=== PATIENT | female | born 1985 | race Caucasian/White ===

== ENCOUNTER 2016-05-06 14:56 | Emergency (ER) | payer OTHER ==
[~2016-05-06] VITALS: Ht 162.6 cm; Wt 104.3 kg
[~2016-05-06 14:56] MED LIST: IBUPROFEN800 MG PO; PERCOCET 325 MG1 TA2 PO
--- NOTE | 2016-05-06 17:11 | ED GI/GU/ABDOMINAL COMPLAINT ---
History of Present Illness General Chief Complaint: General Adult Stated Complaint: pt is having pain on the rigth side Source: patient Exam Limitations: no limitations Vital Signs & Intake/Output Vital Signs & Intake/Output Vital Signs Date Time Temp Pulse Resp B/P Pulse O2 O2 Flow FiO2 Ox Delivery Rate 05/06 1922 97.4 88 20 113/84 97 Room Air 05/06 1459 98.9 100 20 107/79 98 Room Air Allergies Coded Allergies: NO KNOWN ALLERGIES (05/06/16) Reconcile Medications Ciprofloxacin HCl (Cipro) 500 MG TABLET 1 TAB PO BID UTI Ibuprofen 800 MG TABLET 800 MG PO Q6P PRN PAIN SCALE 4-6 Ketorolac Tromethamine 10 MG TABLET 1 TAB PO TID PRN PAIN OXYCODONE HCL/ACETAMINOPHEN (Percocet 5-325 MG Tablet) 325 MG/5 MG TAB 1 TAB PO Q4P PRN PAIN SCALE 7-8 Triage Note: TRIAGE: PT TO ER C/C PAIN TO RT SIDE ABDOMEN AND R SIDE BACK X 8 MONTHS, INTERMITTENT BUT NOW CONSTANT IN LAST MONTH. HAS SEEN MD FOR SAME AND WAS TOLD MUSCULAR, HAD LIVER/KIDNEY TESTS THAT WERE OK. HAS BEEN TAKING IBUPROFEN WITH RELIEF, STATES "IT DID GO AWAY FOR LIKE A WEEK BUT THEN IT CAME BACK". DENIES N/V/D. LBM THIS MORNING, BUT WAS NOT NORMAL. STATES FEELS A LITTLE BIT CONSTIPATED AND HASN'T HAD NORMAL BM'S IN LIKE 2 WEEKS. STATES HAD UTI 2 WEEKS AGO, DENIES ANY CURRENT URINARY S/S. Triage Nurses Notes Reviewed? yes ? N Is pt currently ? No Onset: Abrupt Duration: intermittent Timing: remote history Quality/Severity: sharpness, severe, stabbing, throbbing Severity Numbers: 8 Location: right flank, right upper quadrant Radiation: no radiation Activities at Onset: none HPI: Patient is a 30-year-old female with a past medical history of kidney stones who presents to emergency room with an 8 month history of complaints of intermittent right upper quadrant and right flank pain in which she states that symptoms are paroxysmal nature and have no pattern to onset. Denies any change in symptoms after eating. States that approximately 2 months ago she was evaluated by urgent care facility received blood work with unremarkable findings Patient has been taking ibuprofen with relief of symptoms. Last ibuprofen was yesterday. Denies any significant alcohol use. States she had urinary tract infection symptoms last week however take over-the- counter medications and completely resolved after 1 day. Patient denies any fever, chills, chest pain dysuria hematuria vaginal bleeding vaginal discharge. Last bowel movement was within the last 24 hours no blood no melena noted. Denies any last menstrual period was approximately 25 days (ANIVAL VAZQUEZ) Past History Travel History Traveled to [place] past 21 day No Medical History Any Pertinent Medical History? see below for history Neurological: NONE EENT: NONE Cardiovascular: NONE Respiratory: asthma Gastrointestinal: NONE Hepatic: NONE Renal: NONE Musculoskeletal: NONE Psychiatric: NONE Endocrine: NONE Blood Disorders: NONE Cancer(s): NONE [employer]IONAL [employer]/Reproductive: NONE Surgical History Surgical History: cholecystectomy Psychosocial History What is your primary language Azerbaijani Tobacco Use: Quit >30 days ago ETOH Use: occasional use Illicit Drug Use: denies illicit drug use Family History Hx Contributory? No (ANIVAL VAZQUEZ) Review of Systems Review of Systems Constitutional: Reports: no symptoms. EENTM: Reports: no symptoms. Respiratory: Reports: no symptoms. Cardiovascular: Reports: no symptoms. GI: Reports: see HPI, abdominal pain. Denies: bloating, nausea, changes in stool, vomiting. Genitourinary: Reports: see HPI. Musculoskeletal: Reports: no symptoms. Skin: Reports: no symptoms. Neurological/Psychological: Reports: no symptoms. Hematologic/Endocrine: Reports: no symptoms. Immunologic/Allergic: Reports: no symptoms. All Other Systems: Reviewed and Negative (ANIVAL VAZQUEZ) Physical Exam Physical Exam General Appearance: no apparent distress, obese Gastrointestinal: normal bowel sounds, soft Comments: HEENT: Normal EENT exam, Neck: Supple, no lymphadenopathy, normal range of motion without pain or tenderness Back: Nontender, no CVA tenderness. Cardiovascular: Regular rate and rhythms no murmurs rubs or gallops, normal JVP Respiratory: Chest nontender. No respiratory distress.breath sounds clear to auscultation bilaterally Extremity: No edema, no calf tenderness to palpation, normal and equal pulses. Neuro: Alert oriented x3, motor sensory normal, Skin: No appreciable rash on exposed skin, skin is warm and dry. Psych: Mood and affect is normal, memory and judgment is normal. Core Measures ACS in differential dx? No Severe Sepsis Present: No Septic Shock Present: No (ANIVAL VAZQUEZ) Progress Differential Diagnosis: AAA, AMI, appendicitis, biliary colic, bowel obstruction , colon cancer, diverticulitis, ectopic , endometritis, esophageal varices, gastritis, hepatitis, hernia, hemorrhoids, ischemic bowel, inflamm bowel dis, intrauterine , kidney stone, Leila-Isaías tear, ovarian cyst , ovarian torsion, pancreatitis, PID/cervicitis, peptic ulcer, PUD/GERD, perforated viscous, SBO, threatened AB, UTI/pyelo Plan of Care: Orders Procedure Date/time Status Add-on Test (ER Only) 05/06 1755 Active CULTURE,URINE 05/06 1734 Active URINE 05/06 1712 Complete URINALYSIS 05/06 1712 Complete LIPASE 05/06 1712 Complete DIRECT BILIRUBIN 05/06 1712 Complete COMPREHENSIVE METABOLIC PANEL 05/06 1712 Complete CBC WITHOUT DIFFERENTIAL 05/06 1712 Complete AMYLASE 05/06 1712 Complete Laboratory Tests 05/06/161734: Urinalysis LIGHT H, Urine Color STRAW, Urine Clarity HAZY H, Urine pH 6.5, Ur Specific Mcguffey 1.020, Urine Protein TRACE H, Urine Ketones NEG, Urine Nitrite NEG, Urine Bilirubin NEG, Urine Urobilinogen 0.2, Ur Leukocyte Esterase LARGE H , Ur Microscopic SEDIMENT EXAMINED, Urine RBC 1-3, Urine WBC > 75 H, Ur Epithelial Cells FEW, Urine Hemoglobin SMALL H, Urine Glucose NEG, Urine Test NEGATIVE 05/06/161729: Anion Gap 11, Estimated GFR > 60, BUN/Creatinine Ratio 11.3, Glucose 94, Calcium 9.0, Total Bilirubin 0.5, Direct Bilirubin 0.4, AST 17, ALT 29, Alkaline Phosphatase 81, Total Protein 8.5 H, Albumin 3.9, Globulin 4.6 H, Albumin/ Globulin Ratio 0.8 L, Amylase 39, Lipase 79, CBC w Diff NO MAN DIFF REQ, RBC 3.74 L, MCV 79.6 L, MCH 26.0 L, RDW 15.2 H, MPV 6.9 L, Gran % 73.5, Lymphocytes % 18.6 L, Monocytes % 6.3, Eosinophils % 1.0, Basophils % 0.6, Absolute Granulocytes 6.9 H, Absolute Lymphocytes 1.7, Absolute Monocytes 0.6, Absolute Eosinophils 0.1, Absolute Basophils 0.1, PUBS MCHC 32.7 L Microbiology 05/06 1734 URINE ROUT: Urine Culture - RECD Patient currently is in no apparent distress however due to history of present illness and exam findings or suspicion initially of renal colic or cholangitis. Ultrasound confirmed that there is concern of renal colic over no obstructing ureteral stone is noted at this time. Patient did have significant resolution of pain with ketorolac. Patient was strongly advised to follow-up with urologist tomorrow. Patient will be treated for concerns of UTI urine culture currently is pending. No concern at this time of appendicitis no right lower quadrant pain Discussed disposition and plan with Dr. FIERRO who agrees (TEQUILA PHILLIPS,ANIVAL) Diagnostic Imaging: Viewed by Me: Ultrasound. Radiology Impression: acute abnormality Initial ED EKG: none Comments: PATIENT: REMINGTON LORENZANA PRESENT AGE: 30 PATIENT ACCOUNT NO: [id number] : 84 LOCATION: [facility] ORDERING PHYSICIAN: ANIVAL PHILLIPS SERVICE DATE: 05/06/16 EXAM TYPE: US - US-RENAL/KIDNEY EXAMINATION: US RETROPERITONEAL COMPLETE (RENAL) CLINICAL INFORMATION: Right flank pain.. COMPARISON: None TECHNIQUE: Real-time imaging of the kidneys and bladder. Color Doppler exam utilized. FINDINGS: RIGHT KIDNEY: 13.8 x 7.8 x 6.5 cm (SAG x AP x TRV). There is hydronephrosis of the right kidney. Dilatation of renal pelvis and calyces. The upper pole cortex there is a stone. This measures 2.1 x 1.6 x 2.6 cm. In the midpole there is a stone which measures 1.9 x 0.8 x 1.5 cm. In the lower pole there is a stone measuring 2.2 x 1.7 x 1.2 cm. LEFT KIDNEY: 12.1 x 7.2 x 6.4 cm (SAG x AP x TRV). The kidney is normal in size, contour, and echogenicity. Renal cortical thickness is normal. No calculi or focal parenchymal lesions. No hydronephrosis. BLADDER: Partially filled. Neither ureteral jet is present. Prevoid bladder volume is 63.7 mL. Postvoid bladder volume is not performed. IMPRESSION: Hydronephrosis of right kidney. Multiple large right-sided renal stones.. (ANIVAL VAZQUEZ) Departure Departure Disposition: HOME OR SELF CARE Condition: Stable Clinical Impression Primary Impression: Renal colic on right side Referrals: PATIENT HAS NO PRIMARY CARE DR (PCP/Family) Additional Instructions: As discussed begin the prescription of ciprofloxacin as directed for the full course. Begin the prescription and ketorolac for pain and inflammation. Tomorrow please follow up and establish urologist Dr. Claudio for further evaluation treatment. If symptoms worsen or if YOU develop a new concerning symptom return to emergency room immediately. Prescriptions are waiting at [facility] pharmacy Departure Forms: Customer Survey General Discharge Information Prescriptions: Current Visit Scripts Ketorolac Tromethamine 1 TAB PO TID PRN PAIN #15 TAB Ciprofloxacin HCl (Cipro) 1 TAB PO BID #20 TAB (ANIVAL VAZQUEZ) PA/OLIVE KNOCKER Co-Sign Statement Statement: ED Attending supervision documentation- [] I saw and evaluated the patient. I have also reviewed all the pertinent lab results and diagnostic results. I agree with the findings and the plan of care as documented in the PA's/OLIVE KNOCKER's documentation. [X] I have reviewed the ED Record and agree with the PA's/OLIVE KNOCKER's documentation. [] Additions or exceptions (if any) to the PAs/OLIVE KNOCKER's note and plan are summarized below: [] (SRI MUIR,BIBI)
[2016-05-06 17:55] LABS: ABSOLUTE BASOPHIL COUNT 0.1 /CUMM (0.0-0.2); ABSOLUTE EOSINOPHIL COUNT 0.1 /CUMM (0.0-0.7); ABSOLUTE GRANULOCYTE CT 6.9 /CUMM (1.4-6.5); ABSOLUTE LYMPH COUNT 1.7 /CUMM (1.2-3.4); ABSOLUTE MONOCYTE COUNT 0.6 /CUMM (0.10-0.60); BASOPHIL % 0.6 % (0.0-2.0); GRANULOCYTE % 73.5 % (42.2-75.2); HEMATOCRIT 29.8 % (37-47); MEAN CORPUSCULAR HGB CONC 32.7 G/DL (33.0-37.0); MEAN CORPUSCULAR VOLUME 79.6 FL (81.0-99.0); MEAN PLATELET VOLUME 6.9 FL (7.4-10.4); PLATELET COUNT 603 /CUMM (130-400); RBC DISTRIBUTION WIDTH 15.2 % (11.5-14.5); RED BLOOD CELL CT 3.74 /CUMM (4.20-5.40); WHITE BLOOD CELL COUNT 9.3 /CUMM (4.8-10.8)
[2016-05-06 19:22] VITALS: BP 113/84
--- NOTE | 2016-05-06 20:19 | ULTRASOUND REPORT ---
EXAMINATION: US ABDOMEN LIMITED CLINICAL INFORMATION: Right upper quadrant abdominal pain. COMPARISON: None TECHNIQUE: Real-time imaging of the right upper quadrant abdominal viscera. FINDINGS: PANCREAS: The visualized portions of the pancreas appear unremarkable. The distal pancreatic body and tail are obscured by overlying bowel gas. LIVER: Normal. The liver demonstrates normal size, contour and echogenicity. No focal lesion or intrahepatic biliary duct dilatation. GALLBLADDER: Status post cholecystectomy. COMMON BILE DUCT: Prominent and is visualized measuring 0.7 cm in diameter. RIGHT KIDNEY: The right kidney is mildly enlarged and is visualized measuring approximately 13.5 cm in length. Of note, there is a large stone within the upper pole of the right kidney measuring 2.4 x 2.5 x 2.5 cm. Within the midpole of the right kidney, there is a 2.5 x 1.6 x 1.8 cm stone. A 1.4 x 0.8 x 1.5 cm stone is identified within the lower pole of the left kidney. There is moderate to severe hydronephrosis of the right kidney. FREE FLUID: None. IMPRESSION: 1. Nephrolithiasis of the right kidney, as described above, with several large stones identified within the upper, mid and lower poles of the right kidney. The right kidney appears mildly enlarged and there is moderate to severe hydronephrosis of the right kidney. 2. Status post cholecystectomy. Mildly prominent distal common bile duct, visualized measuring up to 0.7 cm in diameter. No visible intraductal stones.
--- NOTE | 2016-05-06 20:21 | ULTRASOUND REPORT ---
EXAMINATION: US RETROPERITONEAL COMPLETE (RENAL) CLINICAL INFORMATION: Right flank pain.. COMPARISON: None TECHNIQUE: Real-time imaging of the kidneys and bladder. Color Doppler exam utilized. FINDINGS: RIGHT KIDNEY: 13.8 x 7.8 x 6.5 cm (SAG x AP x TRV). There is hydronephrosis of the right kidney. Dilatation of renal pelvis and calyces. The upper pole cortex there is a stone. This measures 2.1 x 1.6 x 2.6 cm. In the midpole there is a stone which measures 1.9 x 0.8 x 1.5 cm. In the lower pole there is a stone measuring 2.2 x 1.7 x 1.2 cm. LEFT KIDNEY: 12.1 x 7.2 x 6.4 cm (SAG x AP x TRV). The kidney is normal in size, contour, and echogenicity. Renal cortical thickness is normal. No calculi or focal parenchymal lesions. No hydronephrosis. BLADDER: Partially filled. Neither ureteral jet is present. Prevoid bladder volume is 63.7 mL. Postvoid bladder volume is not performed. IMPRESSION: Hydronephrosis of right kidney. Multiple large right-sided renal stones..
[2016-05-06] MEDS ORDERED: KETOROLAC TROME10 M1 PO (20:42)
[2016-05-06] MEDS ORDERED: CIPRO500 M1 PO (20:42)
== END 2016-05-06 20:51 ==
LOC: ERH 14:56
PROVIDERS: Physician Assistant
DX: N23 Unspecified renal colic (principal)
CPT/HCPCS: 76775; 81001; 81025; 87086; 96372; J1885

== ENCOUNTER → 2016-05-19 | Day surgery (SDC) | payer OTHER ==
[~2016-05-19] VITALS: Ht 162.6 cm; Wt 103.4 kg
[~2016-05-19] MED LIST changes: +AUGMENTIN PO; +CIPRO500 M1 PO; +KETOROLAC TROME10 M1 PO
--- NOTE | 2016-05-19 15:05 | Operative Report ---
Operative/Inv Procedure Report Surgery Date: 05/19/16 Name of Procedure: right ureter ESWL: fluoroscopy Pre-Operative Diagnosis: right staghorn calculus Post-Operative Diagnosis: same Estimated Blood Loss: none Surgeon/Government Auditor: ALCIRA CORONA MD Anesthesia: moderate sedation Complications: none Operative/Procedure Note Note: The patient was taken to the operating room and placed on the ESWL table in supine position. With the patient awake, timeout was performed to cofirm correct identity, procedure, laterality, anesth., and other pertinent charles- operative information. The patient's RIGHT flank was placed over the table cut -out, overlying the dome of the shockwave generator. C-arm fluroscopy, as well as renal US, was used to locate the stone, and evaluate the RIGHT kidney. The proximal ureter stone was clearly visible on fluoroscopy at the distal right ureter, measuring approximately 10 mm. Additionally, a large staghorn calculus was behind this ureter stone. Renal US confimred mild hydronephrosis, and, no tumor, seen in the right kidney. After adequate anesthesia, the right ureter stone's position was optimized for Shockwave lithotrypsy, using fluoroscopy in AP and oblique views. The E.S.W.L. was initiated at low power levels x 200 shocks. After noting the patient's tolerance to the shockwaves, the shock wave power level was quickly maximized. Toward the end of the procedure, the composition of the stone had changed significantly indicating the pulverization of the ureter stone. A total of 3000 shockwaves were delivered to the stone in order to achieve adequate lithotrypsy. The patient tolerated both the procedure well, was awakened, and taken to recovery in satisfactory condition via stretcher. The pt will be dischared home with pain meds, diet orders, and intructions to catch fragments with straining the urine. The patient is to have follow-up renal ultrasound and KUB in 1-2 weeks, prior to follow-up visit in my office. Findings: right staghorn calculus with prox. ureter stone (the focus of ESWL) Discharge Disposition: Same Day Admissions CC: ALCIRA CORONA MD
== END ==
LOC: STS 03:12
DX: N13.2 Hydronephrosis with renal and ureteral calculous obstruction (principal); J45.909 Unspecified asthma, uncomplicated
CPT/HCPCS: 81025; J2250

== ENCOUNTER → 2016-05-28 | Day surgery (SDC) | payer OTHER ==
[~2016-05-28] VITALS: Ht 162.6 cm; Wt 104.3 kg
--- NOTE | 2016-05-29 15:14 | RADIOLOGY REPORT ---
EXAMINATION: XR abdomen INDICATION: UTEROSCOPY WITH R STENT PLACEMENT COMPARISON: Radiograph dated 10/06/2014 and ultrasound dated 05/26/2016 TECHNIQUE: Multiple AP spot images of the abdomen were submitted as part of the procedure performed by Dr. Claudio. 14.5 seconds of fluoroscopy time was provided. FINDINGS/IMPRESSION: Right staghorn calculus. Right ureteral stent was placed by Dr. Claudio.
--- NOTE | 2016-06-02 12:44 | Operative Report ---
See Addendum Operative/Inv Procedure Report Surgery Date: 05/28/16 Name of Procedure: cystoscopy: right ureteroscopy: laser lithotrypy. Pre-Operative Diagnosis: right ureter stone Post-Operative Diagnosis: same Estimated Blood Loss: hector Surgeon/House Registry Rn: ALCIRA CORONA MD Anesthesia: laryngeal mask airway Specimens: right ureter stone fragments Complications: none Operative/Procedure Note Note: The patient was taken to the operating room and placed on the OR table in supine position. With the patient awake, timeout was performed in order to confirm; correct patient, correct procedure, as well as correct laterality, and other pertinent charles-operative information. After adequate anesthesia and antibiotics , the patient was then placed lithotomy stirrups, draped and prepped in the usual surgical fashion. A 22 Maltese cystoscope sheath with 30 angle lens was inserted into the bladder without difficulty. Upon entering the bladder, the bladder was noted to be free of tumor free of stone. Both orifices were in their orthotopic position. The right ureter orifice was intubated with an 8fr cone-tip catheter and a retrograde pyelogram with fluoroscopy was performed. An 8 mm right mid-ureter filling defect c/w stone was visualized, as well as, right proximal hydronephrosis, with staghorn calculus. The cone-tipped catheter was removed, followed by insertion of a 0.035 Glidewire, which was advanced into the right renal pelvis without difficulty, and placement confirmed on fluoroscopy. Leaving the Glidewire in place, using a rigid Micro-6 ureteroscope, the bladder was then re-entered under direct visualization. The right ureter orifice was clearly visible and open, allowing the ureteroscope entry, and ealily advanced/ inserted into the ureter under direct visualization. The ureteroscope was advanced until the large right ureteral stone was visualized. Under direct visualization the 400 g holmium YAG laser fiber was inserted through the ureteroscope. With the laser fiber in direct contact with the stone, laser lithotripsy was performed in order to pulverize the stone into multiple tiny fragments. The fragments were all flushed out, and sent to pathology for analysis. The staghorn calculus will require PCNL as discussed with the pt. preoperatively. The ureteroscope was easily withdrawn. The patient tolerated the procedure well and to the recovery room in satisfactory condition. The patient is to follow-up within 2-3 weeks' time in order to discuss PCNL at length. Findings: 8mm right dital ureter stone Discharge Disposition: Same Day Admissions CC: CHLOE MUIR,ALCIRA
== END ==
LOC: STS 05-27 23:11
DX: N13.2 Hydronephrosis with renal and ureteral calculous obstruction (principal); J45.909 Unspecified asthma, uncomplicated; Z87.891 Personal history of nicotine dependence
CPT/HCPCS: 74000; 81025; 82355; 87086; C2617; J0131; J0696; J1100; J2250; J2405

== ENCOUNTER → 2016-06-25 | Day surgery (SDC) | payer OTHER ==
[~2016-06-25] VITALS: Ht 162.6 cm; Wt 104.3 kg
--- NOTE | 2016-06-25 11:55 | Operative Report ---
Operative/Inv Procedure Report Surgery Date: 06/25/16 Name of Procedure: cystoscopy: right stent removal. right ureteroscopy laser lithotrypsy of ureter stone; attempted laser of staghorn calculus. Pre-Operative Diagnosis: right stones and stent Post-Operative Diagnosis: same Estimated Blood Loss: less than 50ml Surgeon/Metal Products Viewer: ALCIRA CORONA MD Anesthesia: laryngeal mask airway Complications: none Operative/Procedure Note Note: The patient was taken to the operating room and placed on the OR table in supine position. Timeout was performed, with the patient awake, in order to confirm correct patient, procedure, laterality, anesthesia, and other pertinent information. After adequate anesthesia and antibiotics, the patient was then placed in lithotomy stirrups, draped and prepped in the usual surgical fashion. A 22 Setswana cystoscope sheath with 30 angle lens was inserted into the bladder without difficulty. Upon entering the bladder, the bladder was noted to be free of stone. Both ureteral orifices were in their orthotopic position, a stent protruding from the right ureteral orifice. The stent was grasped with alligator forcep, and the cystoscope along with entire stent was then removed intact. The cystoscope was reinserted into the bladder, and a 0.035 Glidewire was inserted into the right ureteral orifice, advanced into the right renal pelvis without difficulty. A large complex staghorn calculus was noted filling the entire renal pelvis. Using the gluidewire as a guide, a flexible digital ureteroscope, was advanced over the gluidewire into the right ureter at the level of the obstructing stone. The Glidewire was removed, and the 400um fiber was insterted into the ureteroscope. With the laser fiber in direct contact with the 6 mm stone at the mid-ureter, the laser lithotripsy was performed in order to pulverize the stone into multiple tiny fragments. Having completely removed the ureter stone, the flexible uretersocope was removed slowly revealing no tumor, and no stone along the entire length of the ureter. The renal pelvis was then entered revealing the large staghorn calculus. I was not able to guide the flexible ureteroscope under direct vision around the stone. The laser fiber was then reinserted into the flexible ureteroscope, but would not advance beyond the UPJ due to the flexion required. After multiple attempts, this part of the procedure was abandoned. The ureteroscope was then removed under direct visualization without difficulty. The cystoscope was then reinserted into the bladder. The bladder was then drained. The patient tolerated the procedure well was then taken to the recovery room in satisfactory condition. She is to follow up in 1-2 weeks for POC/follow-up. Findings: enormous staghorn filling renal pelvis: small ureter stone-R Discharge Disposition: PACU CC: ALCIRA CORONA MD
--- NOTE | 2016-06-25 17:16 | RADIOLOGY REPORT ---
EXAMINATION: XR ABDOMEN C-ARM FLUOROSCOPIC ASSISTANCE AT THE TIME OF RIGHT-SIDED URETEROSCOPY IN THE OR CLINICAL INDICATION: Right-sided ureteroscopy in the operating room. COMPARISON: None TECHNIQUE: 2 spot radiographs were obtained at the time of the procedure. FINDINGS: There are 2 spot radiograph showing staghorn calculus within the right kidney, as was documented on prior KUB dated 05/26/2016. Full procedural details will be dictated by Dr. Claudio. FLUOROSCOPY TIME: 0.1 minutes. IMPRESSION: Spot radiographs were obtained at the time of the procedure shows presence of a radiopaque staghorn right renal calculi.
--- NOTE | 2016-06-25 17:21 | RADIOLOGY REPORT ---
EXAMINATION: XR ABDOMEN C-ARM FLUOROSCOPIC ASSISTANCE AT THE TIME OF RIGHT-SIDED URETEROSCOPY CLINICAL INDICATION: Staghorn right renal calculi. Right-sided retrograde ureteroscopy and ureteric stent placement. COMPARISON: None TECHNIQUE: 14 spot radiographs were obtained at the time of the right-sided ureteroscopy and internal stent placement. FINDINGS: Previously documented right renal staghorn calculi are visualized. The right ureter appear decompressed. The right internal ureteric stent is seen within the right renal pelvis as well as within the bladder. TOTAL FLUOROSCOPY TIME: 3.6 minutes IMPRESSION: Right-sided ureteroscopy and internal stent placement. Full procedural details will be dictated by Dr. Claudio.
--- NOTE | 2016-06-30 11:37 | Operative Report ---
Operative/Inv Procedure Report Surgery Date: 06/25/16 Name of Procedure: cystoscopy: right retrograde pyelogram, right stent insertion/fluoroscopy Pre-Operative Diagnosis: right renal colic-severe Post-Operative Diagnosis: same Estimated Blood Loss: scant Surgeon/Speed Winder: ALCIRA CORONA MD Anesthesia: moderate sedation Complications: none Condition: improved Operative/Procedure Note Note: The patient was re-taken to the operating room placed OR table in supine position. Timeout was performed, with the patient awake, in order to confirm anesthesia, and other pertinent perioperative information. After adequate anesthesia and antibiotics the patient was then placed lithotomy stirrups, draped and prepped in the usual surgical fashion. A 22 Belarusian cystoscope sheath with 30 angle lens was inserted into the urethra, subsequently into the bladder without difficulty. Upon thorough and systematic surveillance, the bladder was noted to be free of tumor free of stone. Both ureteral orifices were in their orthotopic position with clear reflux from the left side, and no reflux on the right, with obvious edematous obstriction. The right orifice was intubated with an open-ended ureteral access catheter. Retrograde pyelogram was gently performed in order to confirm hydronephrosis, and to better define the anatomy of the ureter and kidney using fluoroscopy. The open-ended stent was then removed. The right orifice was intubated with a 0.035 Glidewire, which was advanced into the right ureter, and into the right upper pole of the kidney, bypassing the staghorn calculus, without difficulty. Over this Glidewire a 6 x 22 Bard onlay stent was inserted/railroaded into the right ureter without difficulty. With the proximal coil in the right renal pelvis, and the distal coil in the bladder, the Glidewire was removed, and the stent remained in proper place. Large amount of clear urine was noted to drained, after placement of the stent on the right side. The bladder was then drained via the cystoscope, and then removed without difficulty. The patient tolerated the procedure well was taken to recovery room in satisfactory condition. Findings: hydronephrosis with distal ureter edema. Discharge Disposition: PACU Additional Comments: pt with post operative severe right renal colic: unable to control pain with iv dilatudid and toradol CC: ALCIRA CORONA MD
== END ==
LOC: STS 07:00
DX: N13.2 Hydronephrosis with renal and ureteral calculous obstruction (principal); N28.89 Other specified disorders of kidney and ureter; Z87.442 Personal history of urinary calculi; N23 Unspecified renal colic
CPT/HCPCS: 74000; 81025; C2617; J1885; J2250

== ENCOUNTER 2016-07-07 02:41 | Inpatient (IN) | payer OTHER ==
[~2016-07-07] VITALS: Ht 162.6 cm; Wt 99.3 kg
[~2016-07-07 02:41] MED LIST changes: -AUGMENTIN PO
--- NOTE | 2016-07-07 10:39 | RADIOLOGY REPORT ---
EXAMINATION: XR ABDOMEN CLINICAL INDICATION: Renal calculus. COMPARISON: Fluoroscopic images of abdomen from 06/25/2016. TECHNIQUE: Intraoperative fluoroscopic imaging of the right abdomen was utilized by Dr. Claudio. FLUOROSCOPY TIME: 2 minutes, 41 seconds. NUMBER OF IMAGES: 8 FINDINGS: Please refer to the operative report of Dr. Claudio regarding the intraoperative findings and specific procedures performed. Several images were saved from the right retrograde ureterography and balloon dilatation procedure. IMPRESSION: Fluoroscopic imaging assistance was provided to Dr. Claudio within the operating room. Please refer to the operative report.
--- NOTE | 2016-07-07 11:39 | ULTRASOUND REPORT ---
CLINICAL HISTORY: This patient is a 30-year-old woman who presents to interventional radiology for placement of a percutaneous nephroureteral catheter in the right kidney for PCNL. Dr. Claudio is the managing urologist. PROCEDURES: 1. Ultrasound and fluoroscopically guided needle access into the right kidney. 2. Placement of a right-sided 5 Fr percutaneous nephroureteral catheter. PHYSICIANS: Dr. Mustafa (attending). The attending radiologist was present during the procedure and related imaging, and reviewed the report. SEDATION: The procedure was performed with monitored anesthesia care. MEDICATIONS: 1. 20 mL of 1% lidocaine SQ. 2. The patient had been given preoperative antibiotics, ciprofloxacin and Ancef, by Dr. Claudio. COMPLICATIONS: None. ESTIMATED BLOOD LOSS: < 5 mL. SPECIMENS: Purulent urine was sent for culture. CONTRAST: 20 mL Optiray 320. FLUOROSCOPY TIME: 5.6 minutes PROCEDURE NOTE: Informed consent was obtained from the patient prior to the procedure. During this process, the procedure and potential alternatives were explained along with the intended outcome and benefits. The risks of the procedure, including the possibility of an unsuccessful procedure, as well as the risk of not doing the procedure, were discussed. The patient was given the opportunity to ask questions regarding the procedure and appeared competent to make decisions. A signed consent form documenting this discussion was placed in the medical record. A time-out procedure was performed. Prior to the IR step of the procedure, Dr. Claudio performed cystoscopy and right-sided ureteral catheter placement to facilitate the needle access into the kidney. She was then brought to the IR suite and positioned prone. Limited ultrasound was performed to localize the right kidney and assess the position of adjacent structures. A suitable access site was chosen. After localizing an approach with both US and fluoroscopy, the anticipated needle track was anesthetized with local lidocaine injection. Under combined fluoroscopic and ultrasound-guidance, a 21 gauge Greb needle was advanced targeting the calyx chosen by the urologist. Contrast was gently injected confirming access within the collecting system. Next, a 0.018 in Greb wire was advanced through the needle into the collecting system. A Greb set was then advanced over the wire under fluoroscopic-guidance. A 0.035 in Glidewire was advanced through the set sheath into the ureter. The sheath was removed over the wire and a 5 Fr straight catheter was advanced over the wire and into the urinary bladder. Position was confirmed with gentle contrast injection. The catheter was secured to the skin with a Tegaderm. The patient was transferred back to the operating room for nephrolithotomy by urology. FINDINGS: Staghorn calculus in the right kidney. Successful needle access into a lower pole calyx/infundibulum. There is filling of a cystic space inferior to the collecting system which is consistent with the patient's known renal abscess. Successful catheterization of the right ureter and bladder with final placement of a [address] Claudio. IMPRESSION: Successful placement of right-sided percutaneous nephroureteral catheter for Dr. Claudio to use for PCNL. PLAN: The patient was stable after the procedure and was transferred back to the operating room for subsequent procedure by Dr. Claudio.
--- NOTE | 2016-07-07 14:09 | RADIOLOGY REPORT ---
EXAMINATION: XR PORTABLE CHEST CLINICAL INFORMATION: Postoperative from percutaneous nephrostomy. COMPARISON: None TECHNIQUE: Portable AP view of the chest was obtained. FINDINGS: Lungs are hypoinflated. Discoid atelectasis is present in the inferior lingula. No pulmonary consolidation, edema or pleural effusion. Cardiac silhouette is normal in size. The visualized bones are normal. No pneumoperitoneum. IMPRESSION: Lungs are hypoinflated and there is discoid atelectasis within the inferior lingula.
--- NOTE | 2016-07-07 14:18 | Cons- Medical ---
TR LOPEZ 07/07/16 1417: General Information and HPI Consulting Request Date of Consult: 07/07/16 Requested By: ALCIRA CLAUDIO MD Reason for Consult: Asthma management Source of Information: patient, old records Exam Limitations: no limitations History of Present Illness: Mrs Mi is a 30-year-old lady with a PMH of nephrolithiasis, previous ESWL on 05/19/2016, laser lithotripsy on 05/28/2016, repeat lithotripsy with stent removal on 06/25/2016 for staghorn calculi, previous urine cultures positive for Proteus mirabilis resistant to nitrofurantoin, history of asthma who was admitted for right-sided staghorn calculus with an abscess, underwent percutaneous nephrolithotripsy with Dutch lithoclast and insertion of a nephroureteral ureter tube. No complications during the procedure were reported. She reports long-standing history of asthma with one admission when she was child and rarely using her rescue inhaler, last used one year ago. VS: BP 120/70, HR 55, RR 20, SPO2 99% on RA, T 97.4 Pertinent labs: WBC 10.4, H&H 10.4/32.6, MCV 77.1, platelets 343, sodium 141, potassium 4.3, BUN/CR 10/0.8 Chest x-ray: Hyperinflated lungs, discoid atelectasis inferior lingula She currently denies any fevers, chills, headache, blurred vision, chest pain palpitations, shortness of breath or abdominal pain. She does report some mild discomfort around the insertion site of the percutaneous drain. Allergies/Medications Allergies: Coded Allergies: No Known Allergies (06/25/16) Home Med List: [AUGMENTIN] 1 TAB PO BID PREVENT INFECTION (Reported) OXYCODONE HCL/ACETAMINOPHEN (Percocet 5-325 MG Tablet) 325 MG/5 MG TAB 1 TAB PO Q4P PRN PAIN SCALE 7-8 Review of Systems Review of Systems Constitutional: Reports: see HPI. EENTM: Reports: no symptoms. Cardiovascular: Reports: no symptoms. Respiratory: Reports: no symptoms. GI: Reports: see HPI. Genitourinary: Reports: see HPI. Musculoskeletal: Reports: see HPI. Past History Medical History Neurological: NONE EENT: NONE Cardiovascular: NONE Respiratory: asthma Gastrointestinal: NONE Hepatic: NONE Renal: NONE Musculoskeletal: NONE Psychiatric: NONE Endocrine: NONE Blood Disorders: NONE Cancer(s): NONE ORDER PULLER/Reproductive: NONE Surgical History Surgical History: cholecystectomy Psychosocial History Who Do You Live With? spouse Primary Language: Belarusian Smoking Status: Unknown If Ever Smoked Living Will? unknown Power of Railroad Car Letterer/HCP? unknown Exam & Diagnostic Data Last 24 Hrs of Vital Signs/I&O Vital Signs Date Time Temp Pulse Resp B/P Pulse O2 O2 Flow FiO2 Ox Delivery Rate 07/07 2018 99 Nasal 2.0L Cannula 07/07 1818 Nasal 2.0L Cannula 07/07 1614 97.4 55 20 120/70 99 Nasal 2.0L Cannula Physical Exam General Appearance: no apparent distress, comfortable, easily arousable to verbal commands Head: normal appearance Eyes: Bilateral: EOMI. Respiratory: no respiratory distress, shallow breathing at this time, no evidence of wheezing Cardiovascular: regular rate/rhythm, normal peripheral pulses Gastrointestinal: normal bowel sounds, soft, non-tender Extremities: normal range of motion, no edema Skin: a cutaneous drain in place on the right posterior flank region, secured to the back with bloody drainage within the tube Last 24 Hrs of Labs/Jose: Laboratory Tests 07/07/16 1405: Anion Gap 10, Estimated GFR > 60, BUN/Creatinine Ratio 12.5, Iron Pending, TIBC Pending, Ferritin Pending, CBC w Diff NO MAN DIFF REQ, RBC 4.23, MCV 77.1 L, MCH 24.7 L, RDW 18.7 H, MPV 7.5, Gran % 88.8 H, Lymphocytes % 9.8 L, Monocytes % 0.9 L, Eosinophils % 0.4, Basophils % 0.1, Absolute Granulocytes 9.2 H, Absolute Lymphocytes 1.0 L, Absolute Monocytes 0.1 L, Absolute Eosinophils 0, Absolute Basophils 0, PUBS MCHC 32.0 L 07/07/16 0640: Urine Test NEGATIVE Assessment/Plan Assessment/Plan Problem list: 1. Right-sided staghorn calculi S/P percutaneous nephrolithotripsy and insertion of nephroureteral ureter tube 2. Asthma 3. Microcytic anemia Recommendations: 1. Right-sided staghorn calculi S/P percutaneous nephrolithotripsy and insertion of nephroureteral ureter tube * We'll follow up with Dr. Claudio for recommendations of duration drain * Patient was in a course of Cipro 500 mg daily beginning May, followed by Augmentin 500/125 until prior to admission * Pertinent cefazolin. Following up cultures and adjust antibodies accordingly 2. Asthma * TRCs * Proair when necessary 3. Microcytic anemia * Follow up iron studies * Start patient on ferrous sulfate supplementation 4. Pain management/bowel regiment * Patient did receive a total of 2.2 mg Dilaudid, morphine 2 mg * Recommend senna, MiraLAX, Colace for titrating to 1 BM per 24 hours Consult Acknowledgment - Thank you for your consult request. VERONIKA MUIR,[facility] 07/07/16 4575: Assessment/Plan Consult Acknowledgment - Thank you for your consult request. Attending MD Review Statement Attending Statement Attending MD Statement: examined this patient, discuss w/resident/PA/INCINERATOR OPERATOR, agreed w/resident/PA/INCINERATOR OPERATOR, reviewed EMR data (avail), discussed with nursing, discussed with case mgmt, reviewed images, amended to note Attending Assessment/Plan: 30-year-old female with the past medical history significant for asthma which is well controlled, history of cholecystectomy, history of right renal calculus who is status post Right percutaneous nephrolithotripsy with Dutch lithoclast. Insertion of nephroureteral ureter tube. Fluoroscopy with antegrade retrogram today and medical consult is called for the medical management of asthma. Patient feels okay except that she has some pain in the right flank. She has a right nephrostomy tube. She also has a Hickey catheter. She claims that her asthma is well controlled and she does not have to use the albuterol inhaler often. In fact she hasn't used it in over a year. She denies any current shortness of breath, wheezing, cough, fevers or chills. She told us that she was started on Augmentin per Dr. Claudio about 2 weeks ago. She has received Ancef superintendent distribution to or and also Dr. Claudio had ordered Cipro 1 dose. vss. on exam; aox3, nad. slightly drwosy but arousable easily. cv; s1, s2, rrr resp; clear abd; soft,tender in right flank with nephrostomy tube, bs+ ext; no edema. Laboratory Tests 07/07 07/07 1405 0640 Chemistry Sodium (137 - 145 mmol/L) 141 Potassium (3.5 - 5.1 mmol/L) 4.3 Chloride (98 - 107 mmol/L) 104 Carbon Dioxide (22 - 30 mmol/L) 26 Anion Gap (5 - 16) 10 BUN (7 - 17 mg/dL) 10 Creatinine (0.5 - 1.0 mg/dL) 0.8 Estimated GFR (>60 ml/min) > 60 BUN/Creatinine Ratio (7 - 25 %) 12.5 Hematology CBC w Diff NO MAN DIFF REQ WBC (4.8 - 10.8 /CUMM) 10.4 RBC (4.20 - 5.40 /CUMM) 4.23 Hgb (12.0 - 16.0 G/DL) 10.4 L Hct (37 - 47 %) 32.6 L MCV (81.0 - 99.0 FL) 77.1 L MCH (27.0 - 31.0 PG) 24.7 L RDW (11.5 - 14.5 %) 18.7 H Plt Count (130 - 400 /CUMM) 343 MPV (7.4 - 10.4 FL) 7.5 Gran % (42.2 - 75.2 %) 88.8 H Lymphocytes % (20.5 - 51.1 %) 9.8 L Monocytes % (1.7 - 9.3 %) 0.9 L Eosinophils % (0 - 5 %) 0.4 Basophils % (0.0 - 2.0 %) 0.1 Absolute Granulocytes (1.4 - 6.5 /CUMM) 9.2 H Absolute Lymphocytes (1.2 - 3.4 /CUMM) 1.0 L Absolute Monocytes (0.10 - 0.60 /CUMM) 0.1 L Absolute Eosinophils (0.0 - 0.7 /CUMM) 0 Absolute Basophils (0.0 - 0.2 /CUMM) 0 PUBS MCHC (33.0 - 37.0 G/DL) 32.0 L Urines Urine Test NEGATIVE Aseessment and recommendations: 30-year-old female with history of asthma and renal calculi status post Right percutaneous nephrolithotripsy with Dutch lithoclast. Insertion of nephroureteral ureter tube. Fluoroscopy with antegrade retrogram today and medical consult is called for the medical management of asthma. Patient will be started on albuterol nebs as needed. Dr. Claudio has already ordered pain management as well as antibiotic. We'll order some bowel regimen. Labs should be checked tomorrow. Will monitor her vitals. DVT prophylaxis: GUANAKO.
[2016-07-07 14:28] LABS: ABSOLUTE BASOPHIL COUNT 0 /CUMM (0.0-0.2); ABSOLUTE EOSINOPHIL COUNT 0 /CUMM (0.0-0.7); ABSOLUTE GRANULOCYTE CT 9.2 /CUMM (1.4-6.5); ABSOLUTE MONOCYTE COUNT 0.1 /CUMM (0.10-0.60); BASOPHIL % 0.1 % (0.0-2.0); EOSINOPHIL % 0.4 % (0-5); GRANULOCYTE % 88.8 % (42.2-75.2); HEMATOCRIT 32.6 % (37-47); MEAN CORPUSCULAR HGB 24.7 PG (27.0-31.0); MEAN CORPUSCULAR VOLUME 77.1 FL (81.0-99.0); MEAN PLATELET VOLUME 7.5 FL (7.4-10.4); PLATELET COUNT 343 /CUMM (130-400); RBC DISTRIBUTION WIDTH 18.7 % (11.5-14.5); RED BLOOD CELL CT 4.23 /CUMM (4.20-5.40)
--- NOTE | 2016-07-07 14:39 | RADIOLOGY REPORT ---
EXAMINATION: XR ABDOMEN CLINICAL INDICATION: Right percutaneous nephrolithotomy performed in operating room. COMPARISON: Fluoroscopic images of the abdomen from 06/25/2016. TECHNIQUE: Intraoperative fluoroscopic imaging of the abdomen utilized. FLUOROSCOPY TIME: 3 minutes, 3 seconds NUMBER OF IMAGES: 34 FINDINGS: Please refer to the operative report from Dr. Claudio. Multiple calculi within the hydronephrotic right kidney. IMPRESSION: Fluoroscopic imaging assistance was provided to the operating room.
[2016-07-07 14:54] LABS: WHITE BLOOD CELL COUNT 10.4 /CUMM (4.8-10.8)
--- NOTE | 2016-07-07 15:25 | Operative Report ---
Operative/Inv Procedure Report Surgery Date: 07/07/16 Name of Procedure: CYSTOSCOPY: REMOVAL OF OLD RIGHT STENT: INSERTION OF FOGERTY CATHETER WITH 1.5ML BALLOON OBSTRUCTION. Pre-Operative Diagnosis: RIGHT STAGHORN CALCULUS WITH ABSCESS Post-Operative Diagnosis: SAME Estimated Blood Loss: 50ml to 100ml Surgeon/Academic Adviser: ALCIRA CORONA MD Anesthesia: moderate sedation Drains: 18 FR. CASTRO AND RIGHT FOGERTY CATHETER. Complications: NONE Operative Indication: RIGHT STAGHORN CALCUSLUS WITH ABSCESS Operative/Procedure Note Note: The patient was taken to the operating room placed on the OR table in supine position. Timeout was performed, with the patient awake, in order to confirm and other pertinent perioperative information. After adequate anesthesia and antibiotics the patient was then placed lithotomy stirrups draped and prepped in usual surgical fashion. 22 Chadian cystoscope sheath with a 32 angle lens was inserted without difficulty. Upon entering the bladder, the right stent was grasped with alligator forceps. The stent was removed intact along with the cystoscope. The cystoscope was reinserted into the bladder, and the right orifice was intubated with a 0.18 Glidewire. The Glidewire advanced into the right renal pelvis without significant difficulty alongside the staghorn calculus. The cystoscope was removed, leaving the Glidewire in place. The 5 Chadian Sheri catheter was inserted over the Glidewire and advanced into the mid ureter, with fluoroscopic visualization, without significant difficulty. The Glidewire was removed. The Sheri balloon was inflated with 1.5 mL of contrast noted to inflate properly on fluoroscopy. An 18 Chadian Castro catheter was inserted without difficulty. The patient was then transferred under monitoring to intervention radiology for the right percutaneous nephrostomy tube placement. She will return to the operating room after the nephro-ureteroente tube is placed. Findings: 6CM RIGHT STAGHORN CALCULUS WITH ABSCESS AT LP Discharge Disposition: TRANSFER TO INTERVENTIONAL RADIOLOGY FOR RIGHT PERCUTANEOUS TUBE INSERTION CC: ALCIRA CORONA MD
--- NOTE | 2016-07-07 15:46 | Operative Report ---
Operative/Inv Procedure Report Surgery Date: 07/07/16 Name of Procedure: Right percutaneous nephrolithotripsy with Guyanese lithoclast. Insertion of nephroureteral ureter tube. Fluoroscopy with antegrade retrogram. Pre-Operative Diagnosis: Right staghorn calculus Post-Operative Diagnosis: Same Estimated Blood Loss: 50ml to 100ml Surgeon/Mat Puncher: ALCIRA CORONA MD Anesthesia: general endotracheal tube Drains: Right nephrostomy tube and 18 Greenlandic Hickey catheter Specimens: Right renal pelvis staghorn fragments Complications: None Operative/Procedure Note Note: The patient was transported back to the operating room from interventional radiology. She was intubated on the stretcher, and placed prone on the OR table with Gelfoam, and pillows support with extremities in good and appropriate alignment. The nephrostomy tube in the right flank was draped and prepped in the usual surgical fashion. A superstiff Glidewire was inserted into the right nephrostomy tube which was advanced into the bladder without difficulty. Nephrostomy tube was removed leaving the Glidewire in place. A 1 cm incision was made alongside the Glidewire prior to passing the nephro balloon dilator. Under fluoroscopic visualization, railroading the superstiff Glidewire, the nephro balloon dilator was inserted through the skin and into the renal pelvis. With fluoroscopic visualization, the balloon was dilated maximally in order to form a tract from the skin to the right renal pelvis. The 10 Greenlandic sheath was then gently guided over the balloon, and into the right renal pelvis. The balloon was deflated after confirming placement of the nephrostomy sheath, and the nephro balloon was removed leaving the superstiff wire in place. The nephroscope was then inserted through the nephro-sheath. , and under direct visualization the large staghorn was visualized. Using the Guyanese lithoclast the large staghorn calculus was then pulverized and evacuated from the upper, middle, lower poles, and renal pelvis. Large fragments of the staghorn calculus were removed. Flexible cystoscope was inserted into the nephro-sheath. The upper middle and lower pole calyxes were evaluated to confirm no significant stone burden were in any of those calixes including the renal pelvis. The cystoscope was removed leaving the superstiff Glidewire in place. The sheath was then removed without difficulty. Over the superstiff Glidewire a nephro U stent was inserted in a railroad fashion. With the ureter portion of the tube in the ureter, the Malecot portion in the renal pelvis, and the nephrostomy tube protruding through the back incision in proper place the superstiff Glidewire was removed. Antegrade pyelogram was performed in order to confirm placement and good function of the tube. The skin was closed using 2-0 silk sutures. The tube was secured to the skin using a 2-0 silk stitch, as well as Tegaderm. The patient tolerated the procedure well, all sponge needle and instrument count were correct at the end of the case. The patient was then placed onto the stretcher once again, extubated, entering to the recovery room in satisfactory condition. Findings: 6 cm staghorn calculus removed entirely. Discharge Disposition: PACU CC: ALCIRA CORONA MD
[2016-07-07 16:14] VITALS: BP 120/70
--- NOTE | 2016-07-07 20:22 | NUR ---
WHEN PT CAME TO FLOOR AND WAS IN 10/10 PAIN. PERCOCET WAS ONLY PAIN MED ORDERED. CALLED SURGICAL PA WAS INFROMED THEY DID NOT COVER DR. CORONA'S PTS. CALLED DR. CORONA'S OFFICE AND PERSON THAT ANSWERED TOLD ME TO CALL OR. CALLED OR AND WAS GIVEN DR. JAMES NUMBER. DR CORONA STATED, "WHO GAVE YOU MY NUMBER I SAID THE OR." I WAS TOLD PA'S DONT COVER. AND CALLED OR AND THEY GAVE ME YOUR NUMBER. HE STATED, "THAT WAS INNAPPROPRIATE. I SAID SORRY. " HE SAID "WHAT'S THE ISSUE I SAID I NEED PAIN MEDS FOR THE PATIENT IN 220 BED 2 ." HE SAID OKAY AND HUNG UP. NO FURTHER ORDERS. MORPHINE 8 MG IV ONCE WAS GIVEN AND MORPHINE ORDERED 2MG IV 2HRS PRN.
[2016-07-07 22:24] VITALS: BP 100/60
[2016-07-08 02:00] VITALS: BP 100/58
[2016-07-08 06:43] VITALS: BP 110/76
--- NOTE | 2016-07-08 08:30 | NUR ---
Dr. Claudio in to see patient. Pain management reviewed with patient. Medications changed to Dilaudid 1mg IV Q2 hours PRN. Medicated with Dilaudid at this time. Patient rates 10/05. Will continue to monitor. Call zepeda in reach.
--- NOTE | 2016-07-08 08:38 | PN- Medicine Consult ---
NETO MUIR,SIDRA 07/08/16 0825: Assessment/Plan Assessment/Plan Assessment: 30-YO female with PMH of nephrolithiasis, previous ESWL on 05/19/2016, laser lithotripsy on 05/28/2016, repeat lithotripsy with stent removal on 06/25/2016 for staghorn calculi, previous urine cultures positive for Proteus mirabilis resistant to nitrofurantoin, history of asthma who was admitted for right-sided staghorn calculus with an abscess with removal of right stent and placement of fogerty catheter yesterday. She remains in pain after placement of catheter. Breathing well on current regimen without any complaints. Plan: 1. Right sided calculi s/p percutanous nephrolithotripsy and insertion of nephroureteral ureter tube. drain to remain in place today per urologist will make patient npo tonight for placement of stent in am. due to abscess, recommendation to continue current medication regimen f/u OR cultures pain medication adjusted due to pain at site of insertion of catheter 2. Asthma oxygenating 98% on 2L will titrate down off O2 and monitor continue TRC and inhalers 3. Microcytic anemia MCV 77. appears to be anemic for the past 2 months taking multivitamins at home, menstruating at this time does not have a pcp, recommend iron supplementation will monitor labs 4. Narcotic induced constipation continue bowel regimen Problem List: 1. Asthma 2. Pain 3. Constipation due to opioid therapy 4. Nephrolithiasis Subjective Subjective: Reports significant pain at site of catheter insertion. Breathing well, does note discomfort on taking deep breath. Has not had BM since 07/06/16. Otherwise doing well. Review of Systems Constitutional: Reports: see HPI. Cardiovascular: Reports: see HPI. Respiratory: Denies: cough, short of breath, sputum production, wheezing. Gastrointestinal: Reports: constipation. Denies: abdominal pain. Genitourinary: Reports: see HPI. Objective Last 24 Hrs of Vital Signs/I&O Vital Signs Date Time Temp Pulse Resp B/P Pulse O2 O2 Flow FiO2 Ox Delivery Rate 07/08 0643 98.1 63 20 110/76 98 Nasal Cannula 07/08 0200 98.5 60 18 100/58 97 Nasal Cannula 07/08 0000 99 Nasal 2.0L Cannula 07/08 2223 98.0 60 20 100/60 99 04/11 2018 99 Nasal 2.0L Cannula 07/07 1818 Nasal 2.0L Cannula 07/07 1614 97.4 55 20 120/70 99 Nasal 2.0L Cannula Intake & Output 07/08 1600 07/08 0800 07/08 0000 Intake Total 1800 740 Output Total 2310 1650 Balance -510 -910 Intake, IV 1000 500 Intake, Oral 800 240 Number 0 Bowel Movements Output, 50 Drainage Output, Urine 2310 1600 Patient 220 lb Weight Physical Exam General Appearance: alert, awake, comfortable, moderate distress, obese Head: atraumatic, normal appearance Ears, Nose, Throat: hearing grossly normal Cardiovascular: regular rate/rhythm, normal peripheral pulses Respiratory: normal breath sounds, quiet respiration, lungs clear Abdomen: normal bowel sounds, soft, non-tender Extremities: no edema Current Medications: Current Medications Sig/Andra Start time Last Medication Dose Route Stop Time Status Admin Acetaminophen 1,000 MG .STK-MED ONE 07/07 1423 DC IV 07/07 1424 Al Hydroxide/Mg 30 ML Q6P PRN 07/07 1345 AC Hydroxide PO Albuterol Sulfate 2 PUF Q4P PRN 07/07 2230 AC INH Cefazolin Sodium 1,000 MG IQ8 07/08 0000 AC 07/08 IV 07/09 0600 0821 Ciprofloxacin 500 MG ONCE 07/07 0000 DC PO 07/07 2359 Dextrose/Sodium 1,000 ML .Q8H 07/07 1345 AC 07/08 Chloride IV 0345 Docusate Sodium 100 MG DAILY 07/08 1000 AC PO Guaifenesin 10 ML Q4P PRN 07/07 1345 AC PO Hydromorphone HCl 1 MG Q2 HRS NEEDED PRN 07/08 0800 AC 07/08 IV PUSH 0830 Hydromorphone HCl 2 MG .STK-MED ONE 07/07 1435 DC IM 07/07 1436 Hydromorphone HCl 2 MG .STK-MED ONE 07/07 1342 DC IM 07/07 1343 Influenza Virus 0.5 ML ONCE ONE 07/07 1845 DC Vaccine IM 07/07 1846 Meperidine HCl 50 MG .STK-MED ONE 07/07 1359 DC IM 07/07 1400 Morphine Sulfate 8 MG ONCE ONE 07/07 1630 DC 07/07 IV 07/07 1631 1624 Morphine Sulfate 2 MG Q2P PRN 07/07 1630 DC 07/08 IV 0630 Multivitamins 1 TAB DAILY 07/08 1000 AC PO Ondansetron HCl 4 MG Q6P PRN 07/07 1400 AC IV Oxycodone/ 2 TAB Q4P PRN 07/07 1400 DC 07/07 Acetaminophen PO 2216 Phenazopyridine HCl 100 MG PC PRN 07/07 1400 AC 07/07 PO 1750 Polyethylene Glycol 17 GM DAILY 07/08 1000 AC PO Zolpidem Tartrate 2.5 MG AT BEDTIME NEED.. 07/07 2200 AC PO Results Last 24 Hrs Lab/Jose Results: Laboratory Tests 07/08/16 0734: Sodium Pending, Potassium Pending, Chloride Pending, Carbon Dioxide Pending, Anion Gap Pending, BUN Pending, Creatinine Pending, BUN/Creatinine Ratio Pending , CBC w Diff Pending, WBC Pending, RBC Pending, Hgb Pending, Hct Pending, MCV Pending, MCH Pending, RDW Pending, Plt Count Pending, MPV Pending, PUBS MCHC Pending 07/07/16 1405: Anion Gap 10, Estimated GFR > 60, BUN/Creatinine Ratio 12.5, Iron 28 L, TIBC 281, Ferritin 58.9, CBC w Diff NO MAN DIFF REQ, RBC 4.23, MCV 77.1 L, MCH 24.7 L, RDW 18.7 H, MPV 7.5, Gran % 88.8 H, Lymphocytes % 9.8 L, Monocytes % 0.9 L, Eosinophils % 0.4, Basophils % 0.1, Absolute Granulocytes 9.2 H, Absolute Lymphocytes 1.0 L, Absolute Monocytes 0.1 L, Absolute Eosinophils 0, Absolute Basophils 0, PUBS MCHC 32.0 L Microbiology 07/07 1100 URINE ROUT: Urine Culture - COLB 07/07 1010 BODY FLUID: Body Fluid Culture - RES GRAM NEGATIVE RODS 07/07 1010 BODY FLUID: Gram Stain - RES VERONIKA MUIR,CATHERINE 07/08/16 1206: Attending MD Review Statement Attending Sign Off Attending Cosign Statement: I have: examined this patient, reviewed al EMR data, personally reviewd images, discussd w/resident/PA/SCHOOL BUSINESS ADMINISTRATOR, discussed mgmt plan w/bob, discussed mgmt plan w/pt, agreed w/resident/PA/SCHOOL BUSINESS ADMINISTRATOR, amended to note. Other Findings: Patient seen and examined, complains of right flank pain. She is ordered Dilaudid and Percocet which she says that helps. Her Hickey catheter was discontinued per Dr. Claudio. Vital Signs Date Time Temp Pulse Resp B/P Pulse O2 O2 Flow FiO2 Ox Delivery Rate 07/08 1203 98.8 71 20 114/64 98 07/08 1117 Room Air Room Air 07/08 0643 98.1 63 20 110/76 98 Nasal Cannula 07/08 0200 98.5 60 18 100/58 97 Nasal Cannula 07/08 0000 99 Nasal 2.0L Cannula 07/07 2224 98.0 60 20 100/60 99 07/07 2018 99 Nasal 2.0L Cannula 07/07 1818 Nasal 2.0L Cannula 07/07 1614 97.4 55 20 120/70 99 Nasal 2.0L Cannula on exam; aox3, nad. cv; s1,s2, rrr resp; clear abd; soft, tender in right flank, bs+ ext; no edema. Laboratory Tests 07/08 07/07 0734 1405 Chemistry Sodium (137 - 145 mmol/L) 139 141 Potassium (3.5 - 5.1 mmol/L) 3.9 4.3 Chloride (98 - 107 mmol/L) 104 104 Carbon Dioxide (22 - 30 mmol/L) 27 26 Anion Gap (5 - 16) 8 10 BUN (7 - 17 mg/dL) 7 10 Creatinine (0.5 - 1.0 mg/dL) 0.8 0.8 Estimated GFR (>60 ml/min) > 60 > 60 BUN/Creatinine Ratio (7 - 25 %) 8.8 12.5 Iron (37 - 170 ug/dL) 28 L TIBC (265 - 497 ug/dL) 281 Ferritin (6.24 - 137 ng/mL) 58.9 Hematology CBC w Diff NO MAN DIFF REQ NO MAN DIFF REQ WBC (4.8 - 10.8 /CUMM) 9.1 10.4 RBC (4.20 - 5.40 /CUMM) 3.74 L 4.23 Hgb (12.0 - 16.0 G/DL) 9.5 L 10.4 L Hct (37 - 47 %) 28.9 L 32.6 L MCV (81.0 - 99.0 FL) 77.2 L 77.1 L MCH (27.0 - 31.0 PG) 25.3 L 24.7 L RDW (11.5 - 14.5 %) 18.7 H 18.7 H Plt Count (130 - 400 /CUMM) 326 343 MPV (7.4 - 10.4 FL) 7.6 7.5 Gran % (42.2 - 75.2 %) 72.4 88.8 H Lymphocytes % (20.5 - 51.1 %) 21.7 9.8 L Monocytes % (1.7 - 9.3 %) 5.1 0.9 L Eosinophils % (0 - 5 %) 0.4 0.4 Basophils % (0.0 - 2.0 %) 0.4 0.1 Absolute Granulocytes (1.4 - 6.5 /CUMM) 6.6 H 9.2 H Absolute Lymphocytes (1.2 - 3.4 /CUMM) 2.0 1.0 L Absolute Monocytes (0.10 - 0.60 /CUMM) 0.5 0.1 L Absolute Eosinophils (0.0 - 0.7 /CUMM) 0 0 Absolute Basophils (0.0 - 0.2 /CUMM) 0 0 PUBS MCHC (33.0 - 37.0 G/DL) 32.7 L 32.0 L 07/07 1343 Other Body Source Stone Analysis Pending Stone Source Pending Stone Nidus Pending Stone Comment Pending Stone Comment Pending Assessment and recommendations; 30-year-old female with history of asthma and renal calculi status post Right percutaneous nephrolithotripsy with English lithoclast. Insertion of nephroureteral ureter tube. Fluoroscopy with antegrade retrogram yesterday and medical consult is called for the medical management of asthma. Dilaudid and percocet for pain control. Patient to go to OR again tomorrow for the internal stent. Labs stable, vitals stable. Abx per Dr. Claudio. DVT Px; ALPS. Thank you will folow.
[2016-07-08 09:25] LABS: ABSOLUTE BASOPHIL COUNT 0 /CUMM (0.0-0.2); ABSOLUTE EOSINOPHIL COUNT 0 /CUMM (0.0-0.7); ABSOLUTE GRANULOCYTE CT 6.6 /CUMM (1.4-6.5); ABSOLUTE MONOCYTE COUNT 0.5 /CUMM (0.10-0.60); BASOPHIL % 0.4 % (0.0-2.0); EOSINOPHIL % 0.4 % (0-5); GRANULOCYTE % 72.4 % (42.2-75.2); HEMATOCRIT 28.9 % (37-47); MEAN CORPUSCULAR HGB 25.3 PG (27.0-31.0); MEAN CORPUSCULAR HGB CONC 32.7 G/DL (33.0-37.0); MEAN CORPUSCULAR VOLUME 77.2 FL (81.0-99.0); MEAN PLATELET VOLUME 7.6 FL (7.4-10.4); PLATELET COUNT 326 /CUMM (130-400); RBC DISTRIBUTION WIDTH 18.7 % (11.5-14.5); RED BLOOD CELL CT 3.74 /CUMM (4.20-5.40); WHITE BLOOD CELL COUNT 9.1 /CUMM (4.8-10.8)
--- NOTE | 2016-07-08 11:45 | NUR ---
Percocet 2 tab PO given for pain per patient request. Patient rating 8/10. Patient reported thinks Percocet worked longer than the IV medication. Will continue to monitor. Call zepeda in reach.
[2016-07-08 12:03] VITALS: BP 114/64
--- NOTE | 2016-07-08 13:00 | NUR ---
Patient reporting pain "back again". Reporting feeling the pain radiating to front of abdomen, buring sensation 10/10. Abdomen soft, no complaints of nausea. Nephrostomy drain draining. Notified medical staff credentialing coordinator, Dr Botello #[phone] of this. Resident will come to assess patient. Notified patient of this. Will continue to monitor. Call zepeda in reach.
[2016-07-08 14:38] VITALS: BP 114/68
[2016-07-08 22:51] VITALS: BP 104/64
[2016-07-09 06:45] VITALS: BP 116/70
--- NOTE | 2016-07-09 12:32 | RADIOLOGY REPORT ---
EXAMINATION: FL: C-arm fluoroscopy assistance at the time of right-sided nephrostomy tube removal, retrograde ureterogram and stent insertion in the operating room. CLINICAL INDICATION: 30-year-old female for nephrostomy tube removal, retrograde ureterogram and stent insertion. COMPARISON: None TECHNIQUE: 9 spot radiographs were obtained at the time of the procedure. C-arm fluoroscopy assistance was provided at the time of the procedure. Fluoroscopy time: 2.5 minutes. FINDINGS: Sequential radiographs shows retrograde ureterogram and placement of right internal ureteric stent. IMPRESSION: C-arm fluoroscopy assistance was provided to Dr. Claudio at the time of the procedure. Full procedural details will be dictated by Dr. Claudio.
[2016-07-09 14:15] VITALS: BP 100/54
--- NOTE | 2016-07-09 14:22 | PN- Medicine Consult ---
NETO MUIR,SIDRA 07/09/16 1406: Assessment/Plan Assessment/Plan Assessment: 30-YO female with PMH of nephrolithiasis, previous ESWL on 05/19/2016, laser lithotripsy on 05/28/2016, repeat lithotripsy with stent removal on 06/25/2016 for staghorn calculi, previous urine cultures positive for Proteus mirabilis resistant to nitrofurantoin, history of asthma who was admitted for right-sided staghorn calculus with an abscess with removal of right stent and placement of fogerty catheter 07/07/16. This morning her pain is better controlled after surgical procedure, internal stent placement. Plan: 1. Right sided calculi s/p percutanous nephrolithotripsy and insertion of nephroureteral ureter tube, stent insertion this morning due to abscess, recommendation to continue current medication regimen f/u OR cultures pain medication adjusted due to pain at site of insertion of catheter 2. Asthma oxygenating 98% on RA continue TRC and inhalers PRN 3. Microcytic anemia MCV 77. appears to be anemic for the past 2 months taking multivitamins at home, menstruating at this time does not have a pcp, recommend iron supplementation will monitor labs 4. Narcotic induced constipation continue bowel regimen 5. Headache tylenol prn Problem List: 1. Asthma 2. Pain 3. Nephrolithiasis Subjective Subjective: Reports feeling better today. Now complains of headache. Review of Systems Constitutional: Reports: see HPI. Objective Last 24 Hrs of Vital Signs/I&O Vital Signs Date Time Temp Pulse Resp B/P Pulse O2 O2 Flow FiO2 Ox Delivery Rate 07/09 1415 98.2 81 20 100/54 95 07/09 0645 98.1 78 20 116/70 96 Room Air 07/09 0000 93 Room Air 07/08 2251 98.1 77 18 104/64 93 Room Air 07/08 1438 98.5 68 20 114/68 96 Intake & Output 07/09 1600 07/09 0800 07/09 0000 Intake Total 600 600 Output Total 1000 495 740 Balance -1000 105 -140 Intake, IV 600 Intake, Oral 0 600 Number 0 Bowel Movements Output, Urine 1000 495 740 Patient 219 lb Weight Physical Exam General Appearance: well developed/nourished, no apparent distress, alert, awake , comfortable Head: atraumatic, normal appearance Cardiovascular: regular rate/rhythm Respiratory: normal breath sounds, no respiratory distress, quiet respiration, lungs clear Peripheral Pulses: 3+ radial (R), 3+ radial (L) Abdomen: normal bowel sounds, soft, non-tender Extremities: no edema Current Medications: Current Medications Sig/Andra Start time Last Medication Dose Route Stop Time Status Admin Acetaminophen 650 MG Q4P PRN 07/09 1115 AC PO Al Hydroxide/Mg 30 ML Q6P PRN 07/07 1345 AC Hydroxide PO Albuterol Sulfate 2 PUF Q4P PRN 07/07 2230 AC INH Cefazolin Sodium 1,000 MG IQ8 07/08 0000 DC 07/09 IV 07/09 0600 0010 Dextrose/Sodium 1,000 ML Q8H 07/09 1115 AC 07/09 Chloride IV 07/09 1914 1238 Dextrose/Sodium 1,000 ML .Q8H 07/09 0100 AC 07/09 Chloride IV 0818 Docusate Sodium 100 MG DAILY 07/08 1000 AC 07/09 PO 1233 Guaifenesin 10 ML Q4P PRN 07/07 1345 AC PO Hydromorphone HCl 0.6 MG Q4P PRN 07/09 1115 AC IV Hydromorphone HCl 1 MG Q2 HRS NEEDED PRN 07/08 0800 DC 07/09 IV PUSH 0815 Multivitamins 1 TAB DAILY 07/08 1000 AC 07/09 PO 1233 Ondansetron HCl 4 MG .STK-MED ONE 07/08 1622 DC IM 07/08 1623 Ondansetron HCl 4 MG Q6P PRN 07/07 1400 AC 07/09 IV 0918 Oxycodone/ 2 TAB Q4P PRN 07/09 1115 AC Acetaminophen PO Oxycodone/ 2 TAB Q4P PRN 07/08 1015 DC 07/08 Acetaminophen PO 1724 Phenazopyridine HCl 100 MG PC PRN 07/07 1400 AC 07/07 PO 1750 Polyethylene Glycol 17 GM DAILY 07/08 1000 AC 07/09 PO 1233 Temazepam 15 MG AT BEDTIME NEED.. 07/09 1130 AC PO Zolpidem Tartrate 2.5 MG AT BEDTIME NEED.. 07/07 2200 AC PO Results Last 24 Hrs Lab/Jose Results: none Recent Imaging Studies: Sequential radiographs shows retrograde ureterogram and placement of right internal ureteric stent. AUDELIA MUIR,[facility] 07/09/16 1435: Attending MD Review Statement Attending Sign Off Attending Cosign Statement: I have: examined this patient, reviewed aval EMR data, personally reviewd images, discussd w/resident/PA/ANIMAL SITTER, discussed mgmt plan w/bob, discussed mgmt plan w/CM, discussed mgmt plan w/pt, agreed w/resident/PA/ANIMAL SITTER, amended to note. Other Findings: Continue antibiotics for now. She may need a total of 14 day course of antibiotics. Monitor for fever/chills.
--- NOTE | 2016-07-09 21:44 | Operative Report ---
Operative/Inv Procedure Report Surgery Date: 07/09/16 Name of Procedure: right nephro-ureter tube removal. cystoscopy with right stent insertion. fluroroscopy Pre-Operative Diagnosis: right nephro-U intolerance Post-Operative Diagnosis: same Estimated Blood Loss: scant Surgeon/Lighting Engineer: ALCIRA CORONA MD Anesthesia: moderate sedation Complications: none Condition: improved-no pain Operative Indication: Severe right nephro ureter tube intolerance requiring significant amounts of IV narcotics. Operative/Procedure Note Note: The patient was taken to the operating room and placed on the OR table in supine position. Timeout was performed, with the patient awake, in order to confirm the correct patient, procedure, laterality, antibiotics, anesthesia, and other pertinent perioperative information. After adequate anesthesia and antibiotics, the patient was placed lithotomy stirrups, draped and prepped in the usual surgical fashion. A 22 [place]ian cystoscope sheath with a 30 angle lens was inserted into the bladder without difficulty. The right orifice was intubated with a 0.035 glide wire which was advanced into the right renal pelvis where he "without difficulty. A 6 x 22 Scar inlay double J stent was very eroded over this glide wire. The stent advanced into the right renal pelvis without difficulty. The glide wire was removed, and the stent remained in proper place. The proximal clearing in the renal pelvis, and the distal clavicle in the bladder. The bladder was then drained and the cystoscope was removed. The patient was then positioned in a left side down right side of modified flank position. The dressings on the nephro U tube were removed and the entire area was draped and prepped in the usual surgical fashion. The locking mechanism of the nephro U tube was unlocked, followed by gentle traction of the nephro U tube in order to remove it entirely. No significant bleeding,or hematoma was notedat the right neck for use site. The small percutaneous incision was closed using Dermabond. Sterile pressure dressing with Tegaderm was placed over the neck for use site. Fluoroscopy was then once again performed in order to confirm the correct placement of the inlay stent. The patient tolerated the procedures well, was taken to the recovery room in satisfactory condition. She will be discharged home with by mouth antibiotics, and by mouth pain medications. She is to follow up in a few weeks' time for reevaluation, and cystoscopy stent removal. Discharge Disposition: PACU CC: ALCIRA CORONA MD
[2016-07-09] MEDS ORDERED: AUGMENTIN PO (21:48)
--- NOTE | 2016-08-06 09:54 | Surgical Discharge Summary ---
Visit Information Visit Dates Admission Date: 07/07/16 Discharge Date: 07/09/16 History of Present Illness Chief Complaint: right staghorn calculus Medical History Blood Transfusion Hx: No Neurological: NONE EENT: NONE Cardiovascular: NONE Respiratory: asthma Gastrointestinal: NONE Hepatic: NONE Renal: KIDNEY STONES Musculoskeletal: NONE Psychiatric: NONE Endocrine: NONE Blood Disorders: NONE Cancer(s): NONE SCHOOL SPEECH LANGUAGE PATHOLOGIST/Reproductive: NONE History of MRSA: No History of VRE: No History of CDIFF: No Isolation History: Standard Surgical History Pertinent Surgical History: cholecystectomy, Psychosocial History Where Do You Live? Home Who Do You Live With? Significant Other Services at Home: None What is Your Primary Language? Irish Tobacco History: denies ETOH Use: denies use (de) Illicit Drug Use History: denies Review of Systems: n/c x 12 Physical Exam: wd/wn nad, vss afebrile Hospital Course Course Attending Physician: ALCIRA CORONA MD Primary Care Physician: PATIENT HAS NO PRIMARY CARE DR Hospital Course: none Allergies: Coded Allergies: No Known Allergies (06/25/16) Disposition Summary Disposition Principal Diagnosis: pain free: stable hemodynamically. Additional Diagnosis: renal colci Discharge Disposition: home or self care Discharge Instructions General Discharge Information Code Status: Full Code Patient's Diet: regular: increase fluid Patient's Activity: as tolerated Follow-Up Instructions/Appts: f/7\ 2 weks Medications at Discharge Discharge Medications: Stop taking the following medications: OXYCODONE HCL/ACETAMINOPHEN (Percocet 5-325 MG Tablet) 325 MG/5 MG TAB ORAL EVERY 4 HOURS NEEDED as needed for PAIN SCALE 7-8 Qty = 30 Copies To: ALCIRA CORONA MD Attending Review Statement Attending Statement Attending Statement: examined this patient, discuss w/resident/PA/DRIFT MINER
== END 2016-07-09 22:40 | DRG 443 ==
LOC: ENRESERVTM → ENRESERVDT → 2NA 02:41 → SDA 02:41 → STS 07:00 → EDSTATUS 07:00 → 2NA 15:47
PROVIDERS: Internal Medicine; ADMIT Urology
PROC: 0T768ZZ Dilation of Right Ureter, Via Natural or Artificial Opening Endoscopic (ICD-10-PCS; principal; 2016-07-07)
PROC: 0TP98DZ Removal of Intraluminal Device from Ureter, Via Natural or Artificial Opening Endoscopic (ICD-10-PCS; principal; 2016-07-07)
PROC: 0T9330Z Drainage of Right Kidney Pelvis with Drainage Device, Percutaneous Approach (ICD-10-PCS; 2016-07-07)
PROC: 0TF38ZZ Fragmentation in Right Kidney Pelvis, Via Natural or Artificial Opening Endoscopic (ICD-10-PCS; 2016-07-07)
PROC: 0T768DZ Dilation of Right Ureter with Intraluminal Device, Via Natural or Artificial Opening Endoscopic (ICD-10-PCS; 2016-07-09)
PROC: BT1DZZZ Fluoroscopy of Right Kidney, Ureter and Bladder (ICD-10-PCS; 2016-07-09)
PROC: 0TP5X0Z Removal of Drainage Device from Kidney, External Approach (ICD-10-PCS; 2016-07-09)
DX: N20.0 Calculus of kidney (principal); Z87.442 Personal history of urinary calculi; J45.909 Unspecified asthma, uncomplicated; D50.9 Iron deficiency anemia, unspecified
CPT/HCPCS: 2NASP; 87075; 36415; 74000; 74475; 81025; 82355; 82436; 87086; C1725; C1769; C2617; J0131; J0690; J2270; J2405; J3490; J7042; Q2036; Q9967

== ENCOUNTER → 2016-08-27 | Day surgery (SDC) | payer OTHER ==
[~2016-08-27] VITALS: Ht 162.6 cm; Wt 104.3 kg
[~2016-08-27] MED LIST changes: +AUGMENTIN PO
--- NOTE | 2016-08-27 11:54 | Operative Report ---
Operative/Inv Procedure Report Surgery Date: 08/27/16 Name of Procedure: left renal ESWL (6mm stone), cystoscopy with RIGHT: Stent removal, flexible ureteroscopy, YAG laser standby Pre-Operative Diagnosis: Bilateral renal colic, dislodged right stent, left renal stone. Post-Operative Diagnosis: Same Estimated Blood Loss: scant Surgeon/Schedule Analyst: ALCIRA CORONA MD Anesthesia: laryngeal mask airway Specimens: Right stent Complications: None Operative/Procedure Note Note: The patient was taken to the operating room placed on the OR table in supine position. Timeout was performed, with the patient awake, in order to confirm correct procedure, laterality, anesthesia, and other pertinent perioperative information. After adequate anesthesia, and antibiotics, the patient's left flank was then positioned over the ESWL table cutout overlying the treatment dome. Fluoroscopy, using AP and oblique views, as well as renal ultrasound, or performed in order to locate the left renal stone. The position of the stone was optimized, and positioned in the middle of the ESWL crosshairs. The stone was measured to be approximately 6 mm in size. ESWL was initiated at low power, and after 200 shockwaves delivered, noting the patient's tolerance to the shockwaves, the power was increased to maximum. At the end of 2500 shockwaves, fluoroscopy confirms the change in consistency of the stone, indicating shattering of the stone. The patient tolerated this procedure well. The patient was then frog legged, draped and prepped in the usual surgical fashion. The holmium YAG laser was ready at the patient's bedside. A 22 [place] Islander cystoscope sheath with 30 angle lens was inserted without difficulty. Upon entering the bladder, the bladder was noted to be free of tumor free of stone. The right orifice was intubated with a double J stent, which was grasped with alligator forceps. The cystoscope along with entire stent was removed without difficulty. The cystoscope was then reinserted into the bladder, and the right orifice was intubated with a 0.035 Glidewire. The Glidewire was advanced into the right renal pelvis fluoroscopic visualization. The cystoscope was then removed, leaving the Glidewire in place. A flexible ureteroscope was then railroaded over the Glidewire, and advanced into the bladder and into the right kidney with fluoroscopic visualization following the Glidewire. The Glidewire was removed, and calyxoscopy. with pyleloscopy, and ureteroscopy of the right kidney was performed revealing no tumor, and no stone. The laser was then deactivated. The patient tolerated the procedures well, and was taken to the recovery room in satisfactory condition. The patient is discharged home with pain medication, and follow-up instructions with in 2-3 weeks' time. Findings: RIGHT: Calyxoscopy, pyeloscopy, ureteroscopy reveals no tumor, no stone. Discharge Disposition: PACU CC: ALCIRA CORONA MD
== END ==
LOC: STS 01:58
DX: N20.0 Calculus of kidney (principal); E66.9 Obesity, unspecified; Z68.37 Body mass index [BMI] 37.0-37.9, adult
CPT/HCPCS: 81025; J1885; J2250

== ENCOUNTER → 2017-07-28 | Day surgery (SDC) | payer OTHER ==
[~2017-07-28] VITALS: Ht 162.6 cm; Wt 99.3 kg
[~2017-07-28] MED LIST changes: +ALBUTEROL2.5 MG/3 M INH; +AMOX-CLAV 500-1 EACH PO; +AUGMENTIN 500-1 EACH PO; +BACTRIM DS TAB1 EACH PO; +CYCLOBENZAPRINE10 M1 PO; +DEMEROL PO; +DOCUSATE SODIU100 M3 PO; +GABAPENTIN300 M2 PO; +HYDROMORPHO2 MG/1 M3 PO; +HYDROXYZINE HCL50 M1 PO; +IBUPROFEN400 M1 PO; +IBUPROFEN600 M1 PO; +KETOROLAC15 MG/1 M1 IV; +LORAZEPAM2 MG/1 M1 IV; +MIRALAX119 GM PO; +MORPHINE SULFAT15 M4 PO; +MORPHINE SULFAT30 M3 PO; +MULTIVITAMINS1 EAC9 PO; +NAPROXEN500 M2 PO; +ONDANSETRON4 MG/2 M3 IV; +ONDANSETRON4 MG/2 M3 PO; +OXYCODONE-ACET1 EAC1 PO; +PERCOCET 5-3251 EACH PO; +PHENAZOPYRIDIN100 M3 PO; +TAMSULOSIN HCL0.4 M1 PO; +ZOFRAN4 M2 PO
--- NOTE | 2017-07-28 16:16 | Operative Report ---
Operative/Inv Procedure Report Surgery Date: 07/28/17 Name of Procedure: Robotic incisional hernia repair with preperitoneal mesh Pre-Operative Diagnosis: Incisional hernia Post-Operative Diagnosis: Same Estimated Blood Loss: scant Surgeon/Hi Lift Operator: Michael MUIR,Abhishek Goff/Laura PHILLIPS Anesthesia: general endotracheal tube Implants: 15 x 15 cm Parietex progrip. Operative Indication: 31-year-old woman status post laparoscopic-assisted right nephrectomy. She presents with new incisional hernia for elective repair Operative/Procedure Note Note: After consent she is brought to the operative laid supine. Gen. anesthesia was obtained and her abdomen was prepped and draped. Access to the peritoneum was gained through an optical 12 mm trocar placed in the midaxillary line left upper quadrant. This was done after local anesthesia instilled. Pneumoperitoneum was achieved. There was a large hernia defect in the right lower quadrant/inguinal region. An 8 mm port was placed in the right mid abdomen and another 8 mm ports placed left laterally. She's placed in Trendelenburg. The robot was undocked and instruments past. Began dissection superior to the defect by taking down the peritoneum and posterior rectus sheath with cautery. We then developed a flap in the avascular plane down the level inguinal region. Then dissected down to the hernia defect. It was just lateral to the epigastric vessels. Care dissection medially down to the pubis and then peeled the fibrous tissue off the epigastric vessels. I was then able to circumferentially dissect the hernia defect and reduced the hernia sac. Inguinal region was then dissected free and the round ligament identified and circumferentially dissected. It was then transected with cautery. Once were happy with the dissection defect was then closed with running 0 absorbable V lock suture. The defect measured 5 x 3 cm. Once the defect was closed the sutures were then extracted. A 15 x 15 cm Parietex Pro system support administrator mesh was placed over the defect. Once were happy the placement of mesh the flap was then closed over the mesh with a running 2-0 V lock absorbable suture. A couple tears in the peritoneum which were repaired with the 2-0 suture. Sutures of his extracted. Once were happy with repair gas was allowed to escape and ports extracted. The fascia at the 12 midline port site was closed with 0 Vicryl suture. Skin incisions closed with 4-0 Vicryl. Steri-Strips and sterile dressing applied. Sponge and needle counts are correct CC: Elaina MUIR,Elaina; David Claudio MD
== END ==
LOC: STS 02:27
DX: K43.2 Incisional hernia without obstruction or gangrene (principal); Z90.5 Acquired absence of kidney; J45.909 Unspecified asthma, uncomplicated
CPT/HCPCS: 81025; C1781; J0131; J0690; J2250; J3490